=== PATIENT | male | born 2000 | race Caucasian/White ===

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

== ENCOUNTER → 2021-01-17 | Outpatient (CLI) | payer OTHER | LOC: EMI 12:58 | DX: G43.709 Chronic migraine without aura, not intractable, without status migrainosus (principal); G47.69 Other sleep related movement disorders; G40.909 Epilepsy, unspecified, not intractable, without status epilepticus; R00.0 Tachycardia, unspecified | CPT/HCPCS: 70551 ==